=== PATIENT | female | born 1980 | race Caucasian/White ===

== ENCOUNTER 2020-01-23 13:31 | Emergency (ER) | payer MEDICAID, OTHER ==
--- NOTE | 2020-01-23 14:35 | ED Physician Documentation ---
PD HPI FOCAL NEURO - Stated complaint Stated Complaint: FACE NUMBNESS/HIGH BP - Chief complaint Chief Complaint: Neuro - History obtained from History obtained from: Patient, Family - Additional information Additional information: 39-year-old woman with history of Anxiety and hypertension. She was briefly treated for hypertension about a month ago with metoprolol but made her feel bad. Subsequently her blood pressures came down without specific intervention. Over the last 2 to 3 days she has had intermittent right facial numbness and very occasional right arm numbness. She started taking her blood pressure after she noted those symptoms and noted it to be quite high. She stopped her Wellbutrin thinking it might be a side effect, but she just stopped it today. She is also been taking numerous supplements. No associated headache or trouble breathing. Review of Systems Constitutional: denies: Fever, Chills Nose: reports: Reviewed and negative Throat: reports: Reviewed and negative Cardiac: reports: Chest pain / pressure PD PAST MEDICAL HISTORY - Allergies Allergies/Adverse Reactions: Allergies Allergy/AdvReac Type Severity Reaction Status Date / Time Penicillins Allergy Unknown Verified 01/23/20 13:39 PD ED PE NORMAL - Vitals Vital signs reviewed: Yes - General General: Alert and oriented X 3, No acute distress - HEENT HEENT: PERRL, EOMI - Neck Neck: Supple, no meningeal sign, No bony TTP - Cardiac Cardiac: RRR, No murmur - Respiratory Respiratory: No respiratory distress, Clear bilaterally - Abdomen Abdomen: Non tender - Back Back: No CVA TTP, No spinal TTP - Derm Derm: Normal color, Warm and dry - Extremities Extremities: Normal ROM s pain, No edema, No calf tenderness / cord - Neuro Neuro: Alert and oriented X 3, No motor deficit, Normal speech NIHSS - Time Time: 14:25 - Level of Consciousness Level of consciousness: (0) Alert, Keenly responsive LOC Questions: (0) Answers both Q's correct LOC Commands: (0) Performs both correctly - Gaze Best Gaze: (0) Normal - Visual Visual: (0) No loss - Facial Palsy Facial Palsy: (0) Normal, symmetrical movement - Motor Arms (both separate) Motor Arm (right): (0) No drift Motor Arm (left): (0) No drift - Motor Legs (both separate) Motor Leg (right): (0) No drift Motor Leg (left): (0) No drift - Limb Ataxia Limb Ataxia: (0) Absent - Sensory Sensory: (1) [id number]-[id number] loss (Very mildly decreased sensation to the right mid face, seems to spare the forehead, and also the right arm in places, more distal than proximal.) - Best Language Best Language: (0) No aphasia - Dysarthria Dysarthria: (0) Normal - Extinction and Inattention (formally neg Extinction and inattention: (0) No abnormality - Total Score/Results Total Score/Result: 1 Results - Vitals Vitals: Vital Signs - 24 hr 01/23/20 01/23/20 01/23/20 13:34 14:55 16:01 Temperature 36.8 C 37.1 C 36.7 C Heart Rate 92 78 91 Respiratory 20 12 20 Rate Blood Pressure 173/104 H 142/90 H 129/80 O2 Saturation 100 98 99 Oxygen O2 Source Room air - Labs Labs: Laboratory Tests 01/23/20 01/23/20 01/23/20 14:17 14:17 14:55 WBC 7.5 RBC 3.90 L Hgb 13.2 Hct 37.9 MCV 97.2 MCH 33.8 H MCHC 34.8 RDW 12.2 Plt Count 295 MPV 9.1 Neut # (Auto) 5.5 Lymph # (Auto) 1.3 L [place] # (Auto) 0.6 Eos # (Auto) 0.1 Baso # (Auto) 0.0 Absolute Nucleated RBC 0.00 Nucleated RBC % 0.0 VBG pH VBG pCO2 VBG pO2 VBG HCO3 VBG Total CO2 VBG O2 Saturation VBG Base Excess Sodium Potassium Chloride Carbon Dioxide Anion Gap BUN Creatinine Estimated GFR (MDRD) Glucose Calcium Urine Color YELLOW Urine Clarity CLEAR Urine pH 6.5 Ur Specific [place] 1.025 1.025 Urine Protein NEGATIVE Urine Glucose (UA) NEGATIVE Urine Ketones 15 H Urine Occult Blood NEGATIVE Urine Nitrite NEGATIVE Urine Bilirubin NEGATIVE Urine Urobilinogen 0.2 (NORMAL) Ur Leukocyte Esterase NEGATIVE Ur Microscopic Review NOT INDICATED Urine Culture Comments NOT INDICATED Urine HCG, Qual NEGATIVE 01/23/20 01/23/20 14:55 14:55 WBC RBC Hgb Hct MCV MCH MCHC RDW Plt Count MPV Neut # (Auto) Lymph # (Auto) [place] # (Auto) Eos # (Auto) Baso # (Auto) Absolute Nucleated RBC Nucleated RBC % VBG pH 7.398 VBG pCO2 43.6 VBG pO2 31.1 VBG HCO3 26.3 VBG Total CO2 27.6 VBG O2 Saturation 63.8 VBG Base Excess 1.1 Sodium 137 Potassium 4.1 Chloride 102 Carbon Dioxide 25 Anion Gap 10.0 BUN 9 Creatinine 0.7 Estimated GFR (MDRD) 94 Glucose 132 H Calcium 9.5 Urine Color Urine Clarity Urine pH Ur Specific [place] Urine Protein Urine Glucose (UA) Urine Ketones Urine Occult Blood Urine Nitrite Urine Bilirubin Urine Urobilinogen Ur Leukocyte Esterase Ur Microscopic Review Urine Culture Comments Urine HCG, Qual - Rads (name of study) MRI brain Radiology: EMP read contemporaneously (NAD) PD MEDICAL DECISION MAKING - ED course ED course: 39-year-old woman presents with episodic hypertension associated with some vague right-sided neurologic symptoms, mostly the face but also the right upper extremity. MRI of the brain was done and negative. Blood pressure came down to 120/60 without specific intervention. Departure - Departure Disposition: 01 Home, Self Care Clinical Impression: Stroke-like symptoms Condition: Good Record reviewed to determine appropriate education?: Yes Instructions: ED Stress React Comments: Radiologist agreed that the MRI of your head was normal, this rules out a stroke. You should return for new or worsening symptoms. If symptoms are persistent, talk with your doctor about a neurology referral. Your blood pressure was quite high but came down to normal without any medications here. There may be some anxiety component to this, talk with your doctor also about a referral for cognitive behavioral therapy since medications for anxiety do not seem to be working well for you.
[2020-01-23 14:48] LABS: BILIRUBIN,URINE NEGATIVE (NEGATIVE); GLUCOSE, URINE (UA) NEGATIVE (NEGATIVE); KETONES,URINE (UA) 15 mg/dL (NEGATIVE); LEUKOCYTE ESTERASE, URINE NEGATIVE (NEGATIVE); NITRITE,URINE NEGATIVE (NEGATIVE); OCCULT BLOOD,URINE NEGATIVE (NEGATIVE); PH,URINE 6.5 PH (5.0-7.5); PROTEIN,URINE NEGATIVE (NEGATIVE); UROBILINOGEN,URINE 0.2 (NORMAL) E.U./dL (NORMAL)
[2020-01-23 14:49] LABS: CLARITY,URINE CLEAR (CLEAR)
[2020-01-23 14:50] LABS: HCG UR QUAL NEGATIVE
[2020-01-23 15:08] LABS: BASOPHILS % (AUTO) 0.5 %; EOSINOPHILS # (AUTO) 0.1 10^3/uL (0.0-0.7); EOSINOPHILS % (AUTO) 0.8 %; HGB - HEMOGLOBIN 13.2 g/dL (12.0-16.0); LYMPHOCYTES # (AUTO) 1.3 10^3/uL (1.5-3.5); LYMPHOCYTES % (AUTO) 16.8 %; MEAN CORPUSCULAR HEMOGLOBIN 33.8 pg (27.0-31.0); MEAN CORPUSCULAR HGB CONC 34.8 g/dL (32.0-36.0); MEAN CORPUSCULAR VOLUME 97.2 fL (81.0-99.0); MEAN PLATELET VOLUME 9.1 fL (7.9-10.8); MONOCYTES # (AUTO) 0.6 10^3/uL (0.0-1.0); MONOCYTES % (AUTO) 7.7 %; NEUTROPHILS # (AUTO) 5.5 10^3/uL (1.5-6.6); NEUTROPHILS % (AUTO) 73.9 %; PLT - PLATELET COUNT 295 10^3/uL (130-450); RED CELL DISTRIBUTION WIDTH 12.2 % (12.0-15.0); VBG PCO2 43.6 mmHg (41-51); VBG PH 7.398 (7.31-7.41); VBG PO2 31.1 mmHg (25-47); WHITE BLOOD COUNT 7.5 x10^3/uL (4.8-10.8)
[2020-01-23 15:09] LABS: VBG BASE EXCESS 1.1 mmol/L (-2 - +2); VBG TOTAL CO2 27.6 mmol/L (24-29)
[2020-01-23 15:20] LABS: CALCIUM 9.5 mg/dL (8.5-10.3); CREATININE 0.7 mg/dL (0.4-1.0)
--- NOTE | 2020-01-23 18:23 | MRI Report ---
PROCEDURE: Brain W/O INDICATIONS: stroke like symptoms TECHNIQUE: Noncontrast axial T1 spin echo, axial T2 fast spin echo, sagittal and axial FLAIR, coronal T2 fast sp in echo, axial gradient echo, axial diffusion and ADC through the brain. COMPARISON: None. FINDINGS: Image quality: Excellent. CSF Spaces: Basal cisterns are patent. No extra-axial fluid collections. Ventricles are normal in size and shape. Brain: No intracranial masses or hemorrhage. Brand/white matter interface is normal. Brainstem appe ars normal. Diffusion-weighted images demonstrate no acute ischemic insult. No chronic ischemic ins ults. Normal intravascular flow voids are present. Skull and face: Calvarium has normal marrow signal. Orbits appear normal. Sinuses: Sinuses and mastoids are clear. IMPRESSION: Unremarkable brain MRI without contrast. No evidence of acute stroke, hemorrhage, or mass. Reviewed by: Agusto Arzate MD on 01/23/2020 6:22 PM PDT Approved by: Agusto Arzate MD on 01/23/2020 6:22 PM PDT Station ID: [id number]
[2020-01-23 18:59] VITALS: BP 125/83
== END 2020-01-23 18:59 | disposition home or self-care (01) ==
LOC: ED 13:31
DX: R20.0 Anesthesia of skin (principal); I10 Essential (primary) hypertension
CPT/HCPCS: 36415; 70551; 80048; 81001; 81003; 81025; 82803; 85025; 87086; 99284

== ENCOUNTER 2020-07-19 13:29 | Emergency (ER) | payer MEDICAID ==
[2020-07-19] MEDS ORDERED: IOPAMIDOL-300 100 ML VIAL ONE (13:59)
--- NOTE | 2020-07-19 14:08 | ED Physician Documentation ---
PD HPI FOCAL NEURO - Stated complaint Stated Complaint: NUMBNESS RT FACE - Chief complaint Chief Complaint: Neuro - History obtained from History obtained from: Patient - Additional information Additional information: I saw her in January for right-sided facial numbness. At that time she had an MRI of her brain that was normal. It was felt potentially due to Wellbutrin given the timing. She has had constant symptoms of this but more recently was couple as such short about on the basis of blacking out of the vision on the right. She states that it usually happens at around noon at work. It is associated with persistent mild right-sided numbness. Pursuant to that she had her right maxillary wisdom tooth removed about a week ago with a short course of Zithromax which has not changed her symptoms. She denies fevers or chills. Starting today she had right-sided sharp upper neck pain which concerned her. She has an appointment with ENT but has not seen them yet. Review of Systems Constitutional: denies: Fever, Chills Nose: reports: Rhinorrhea / runny nose, Congestion Throat: denies: Sore throat Respiratory: denies: Dyspnea, Cough GI: denies: Nausea, Vomiting PD PAST MEDICAL HISTORY - Past Medical History Cardiovascular: Hypertension Psych: Depression - Past Surgical History Past Surgical History: No - Present Medications Home Medications: Ambulatory Orders Medication Instructions Recorded Confirmed Amitriptyline [Elavil] 25 mg PO HS #30 tablet 07/19/20 - Allergies Allergies/Adverse Reactions: Allergies Allergy/AdvReac Type Severity Reaction Status Date / Time Penicillins Allergy Unknown Verified 07/19/20 13:33 - Social History Does the pt smoke?: No Smoking Status: Never smoker Does the pt have substance abuse?: No PD ED PE NORMAL - Vitals Vital signs reviewed: Yes - General General: Alert and oriented X 3, No acute distress - HEENT HEENT: PERRL, EOMI, Pharynx benign - Neck Neck: Supple, no meningeal sign, No bony TTP - Cardiac Cardiac: RRR, No murmur - Respiratory Respiratory: No respiratory distress, Clear bilaterally - Abdomen Abdomen: Normal bowel sounds, Soft, Non tender - Back Back: No CVA TTP, No spinal TTP - Derm Derm: Normal color, Warm and dry - Extremities Extremities: No edema, No calf tenderness / cord - Neuro Neuro: Alert and oriented X 3, No motor deficit, Normal speech, Other (Very mild numbness of the right side of the body, forehead, face, arm, leg.) Eye Opening: Spontaneous Motor: Obeys Commands Verbal: Oriented GCS Score: 15 NIHSS - Time Time: 13:55 - Level of Consciousness Level of consciousness: (0) Alert, Keenly responsive LOC Questions: (0) Answers both Q's correct LOC Commands: (0) Performs both correctly - Gaze Best Gaze: (0) Normal - Visual Visual: (0) No loss - Facial Palsy Facial Palsy: (0) Normal, symmetrical movement - Motor Arms (both separate) Motor Arm (right): (0) No drift Motor Arm (left): (0) No drift - Motor Legs (both separate) Motor Leg (right): (0) No drift Motor Leg (left): (0) No drift - Limb Ataxia Limb Ataxia: (0) Absent - Sensory Sensory: (1) Uuxj-qd-vpcsxhmr loss - Best Language Best Language: (0) No aphasia - Dysarthria Dysarthria: (0) Normal - Extinction and Inattention (formally neg Extinction and inattention: (0) No abnormality - Total Score/Results Total Score/Result: 1 Results - Vitals Vitals: Vital Signs - 24 hr 07/19/20 13:33 Temperature 36.5 C Heart Rate 104 H Respiratory 16 Rate Blood Pressure 170/100 H O2 Saturation 99 Oxygen O2 Source Room air - Labs Labs: Laboratory Tests 07/19/20 07/19/20 14:06 14:06 WBC 8.6 RBC 4.25 Hgb 14.1 Hct 39.9 MCV 93.9 MCH 33.2 H MCHC 35.3 RDW 11.7 L Plt Count 328 MPV 9.2 Neut # (Auto) 6.3 Lymph # (Auto) 1.6 [place] # (Auto) 0.5 Eos # (Auto) 0.1 Baso # (Auto) 0.1 Absolute Nucleated RBC 0.00 Nucleated RBC % 0.0 Sodium 137 Potassium 3.6 Chloride 104 Carbon Dioxide 23 Anion Gap 10.0 BUN 12 Creatinine 0.6 Estimated GFR (MDRD) 112 Glucose 107 H Calcium 9.7 - Rads (name of study) CTA Head and Neck Radiology: EMP read contemporaneously (Normal) PD MEDICAL DECISION MAKING - ED course ED course: She has persistent and progressive symptoms of numbness and more recently right- sided retro-orbital pressure and now acutely right-sided neck pain. Previous MRI for similar symptoms was normal, this should have good sensitivity ruling out MS, tumor, stroke. She was having active retro-orbital pressure and was placed on high flow oxygen which changed her symptoms, decreased the neck pain and move the pain over towards the ear. We discussed the possibility of cluster headaches. But we still need to rule out vascular issue given the new neck pain. Angiography of the head and neck were normal. She is seeing ENT but probably should see neurology as well and she is given the number to call. Given the potential for atypical headache syndrome, seems reasonable to trial some low- dose amitriptyline at night pending follow-up. Departure - Departure Disposition: 01 Home, Self Care Clinical Impression: Stroke-like symptoms Condition: Good Record reviewed to determine appropriate education?: Yes Instructions: ED Cephalgia Unspecified Prescriptions: Amitriptyline [Elavil] 25 mg PO HS #30 tablet Comments: CT angiography of the head and neck is normal, no evidence of disease of the vertebral arteries, masses. There are no sinus blockages or fluid. At this point, I think it is necessary to follow-up with the neurologist. The closest to you would be at [facility], 1 option would be: Shea Ribeiro MD Phone number [phone]. Return if worsening.
[2020-07-19 14:16] LABS: BASOPHILS # (AUTO) 0.1 10^3/uL (0.0-0.1); BASOPHILS % (AUTO) 0.6 %; EOSINOPHILS # (AUTO) 0.1 10^3/uL (0.0-0.7); EOSINOPHILS % (AUTO) 1.2 %; HCT - HEMATOCRIT 39.9 % (37.0-47.0); HGB - HEMOGLOBIN 14.1 g/dL (12.0-16.0); LYMPHOCYTES # (AUTO) 1.6 10^3/uL (1.5-3.5); LYMPHOCYTES % (AUTO) 18.4 %; MEAN CORPUSCULAR HEMOGLOBIN 33.2 pg (27.0-31.0); MEAN CORPUSCULAR HGB CONC 35.3 g/dL (32.0-36.0); MEAN CORPUSCULAR VOLUME 93.9 fL (81.0-99.0); MEAN PLATELET VOLUME 9.2 fL (7.9-10.8); MONOCYTES # (AUTO) 0.5 10^3/uL (0.0-1.0); MONOCYTES % (AUTO) 6.3 %; NEUTROPHILS # (AUTO) 6.3 10^3/uL (1.5-6.6); NEUTROPHILS % (AUTO) 73.3 %; PLT - PLATELET COUNT 328 10^3/uL (130-450); RED BLOOD COUNT 4.25 10^6/uL (4.20-5.40); RED CELL DISTRIBUTION WIDTH 11.7 % (12.0-15.0); WHITE BLOOD COUNT 8.6 x10^3/uL (4.8-10.8)
--- OUTSIDE RECORDS SUMMARY | 2020-07-19 14:16 | EXTERNAL MEDICAL SUMMARY RPT | Continuity of Care Document ---
:1980 Demographics Phone Unavailable Preferred Language Unknown Marital Status Unknown Yazidi Affiliation Unknown Race Unknown Ethnic Group Unknown Author Organization [facility] Address [address] [place] [address] Phone Social History date description facility [id number]
[2020-07-19 14:23] LABS: CALCIUM 9.7 mg/dL (8.5-10.3); CREATININE 0.6 mg/dL (0.4-1.0); POTASSIUM 3.6 mmol/L (3.5-5.0)
[2020-07-19] MEDS ORDERED: IOPAMIDOL-300 100 ML VIAL IVP ONE (14:55)
--- NOTE | 2020-07-19 15:07 | CT Report ---
PROCEDURE: ANGIO HEAD W/WO INDICATIONS: R headache/neck pain CONTRAST: IV CONTRAST: Isovue 300 ml: 80 PO CONTRAST: *NO PO CONTRAST TECHNIQUE: Precontrast 4.5 mm thick angled axial sections acquired from the foramen magnum to the vertex. Afte r the administration of intravenous contrast, 1 mm thick sections acquired through the [place] of [place] is. Postcontrast 4.5 mm thick sections then re-acquired from the foramen magnum to the vertex. 3-di mensional hhwvrbl-twytwjyue-nbvgazhezr (MIP) and/or volume rendering reformats were acquired of the c entral intracranial vasculature. For radiation dose reduction, the following was used: automated ex posure control, adjustment of mA and/or kV according to patient size. COMPARISON: MR brain 01/23/2020 FINDINGS: Image quality: Excellent. Anterior circulation: Intracranial internal carotid arteries are normal in size and flow. The flow within the paired anterior cerebral arteries is normal and symmetric. The flow within the middle cer ebral arteries is normal and symmetric. The anterior communicating artery is seen. No aneurysms are seen. Posterior circulation: Visualized portions of the vertebral arteries demonstrate normal caliber, and join to form a normal appearing basilar artery. Flow within the posterior cerebral arteries is norm al and symmetric. No aneurysms are seen. CSF spaces: Ventricles are normal in size and shape. Basal cisterns are patent. No extra-axial flu id collections. Brain: No midline shift. No intracranial bleeds or masses. Brand-white matter interface appears int act. Skull and face: Calvarium and facial bones appear intact, without suspicious lesions. Sinuses: Visualized sinuses and mastoids are clear. IMPRESSION: Normal appearing brain parenchyma, no evidence of intracranial aneurysm, embolus, or thrombosis. Reviewed by: Stewart Jackman MD on 07/19/2020 3:05 PM PDT Approved by: Stewart Jackman MD on 07/19/2020 3:05 PM PDT Station ID: [id number]
--- NOTE | 2020-07-19 15:11 | CT Report ---
PROCEDURE: ANGIO NECK W INDICATIONS: R headache/neck pain CONTRAST: IV CONTRAST: Isovue 300 ml: 80 PO CONTRAST: *NO PO CONTRAST TECHNIQUE: After the administration of intravenous contrast, 1.5 mm axial sections acquired from the aortic arch to the [place] of [place]. Coronal 3-D maximum intensity projection (MIP) and/or volume rendering ref ormats were then performed. For radiation dose reduction, the following was used: automated exposur e control, adjustment of mA and/or kV according to patient size. COMPARISON: Brain MRI 01/23/2020. Intracranial CT angiogram same day. FINDINGS: Image quality: Excellent. Carotid system: The great vessels demonstrate a conventional anatomy as they arise from the aortic a rch. The origins of the common carotid arteries appear patent. The common carotid arteries demonstr ate normal calibers and courses. The bifurcation regions appear normal bilaterally. The internal ca rotid arteries demonstrate normal caliber and course. Posterior circulation: The origins of the vertebral arteries appear patent. The more superior porti ons of the vertebral arteries demonstrate normal course and caliber. They join to form a normal appe aring basilar artery. Soft tissues: Visualized neck soft tissues demonstrate no suspicious abnormalities. The thyroid gla nd is normal in size. Bones: No suspicious bony lesions. Visualized cervical spine appears normally aligned. IMPRESSION: No sign of carotid stenosis, vertebral arterial stenosis, or dissection involving the brachiocephalic vasculature. Source of new onset neck pain is not identified. The estimate of stenosis included in the report of the imaging study was calculated using the NASCET method Reviewed by: Stewart Jackman MD on 07/19/2020 3:10 PM PDT Approved by: Stewart Jackman MD on 07/19/2020 3:10 PM PDT Station ID: [id number]
[2020-07-19 15:44] VITALS: BP 139/80
== END 2020-07-19 15:44 | disposition home or self-care (01) ==
LOC: ED 13:29
DX: R20.0 Anesthesia of skin (principal); M54.2 Cervicalgia; R51.9 Headache, unspecified; H53.9 Unspecified visual disturbance; I10 Essential (primary) hypertension
CPT/HCPCS: 36415; 70496; 70498; 80048; 85025; 99284; Q9967

== ENCOUNTER 2020-09-02 13:27 | Emergency (ER) | payer MEDICAID ==
--- OUTSIDE RECORDS SUMMARY | 2020-09-02 13:31 | EXTERNAL MEDICAL SUMMARY RPT | Continuity of Care Document ---
:1980 Demographics Phone Unavailable Preferred Language Unknown Marital Status Unknown Religion Affiliation Unknown Race Unknown Ethnic Group Unknown Author Organization [facility] Address [address] [place] [address] Phone Allergies Encounters Medications Problems Results
--- OUTSIDE RECORDS SUMMARY | 2020-09-02 13:51 | EXTERNAL MEDICAL SUMMARY RPT | Continuity of Care Document ---
:1980 Demographics Phone Unavailable Preferred Language Unknown Marital Status Unknown Spiritism Affiliation Unknown Race Unknown Ethnic Group Unknown Author Organization [facility] Address [address] [place] [address] Phone Allergies Encounters Medications Problems Results
--- NOTE | 2020-09-02 14:13 | XRAY Report ---
PROCEDURE: Chest 1 View X-Ray INDICATIONS: Chest pain TECHNIQUE: One view of the chest was acquired. COMPARISON: None FINDINGS: Surgical changes and devices: None. Lungs and pleura: No pleural effusions or pneumothorax. Lungs are clear. Mediastinum: Mediastinal contours appear normal. Heart size is normal. Bones and chest wall: No suspicious bony lesions. Overlying soft tissues appear unremarkable. IMPRESSION: No acute cardiopulmonary disease process. Reviewed by: Юлия Jackson MD, PhD on 09/02/2020 2:11 PM PDT Approved by: Юлия Jackson MD, PhD on 09/02/2020 2:11 PM PDT Station ID: [id number]
[2020-09-02 14:24] LABS: BASOPHILS % (AUTO) 0.4 %; EOSINOPHILS % (AUTO) 0.4 %; HGB - HEMOGLOBIN 14.2 g/dL (12.0-16.0); LYMPHOCYTES # (AUTO) 1.6 10^3/uL (1.5-3.5); LYMPHOCYTES % (AUTO) 16.9 %; MEAN CORPUSCULAR HEMOGLOBIN 34.4 pg (27.0-31.0); MEAN CORPUSCULAR HGB CONC 35.5 g/dL (32.0-36.0); MEAN CORPUSCULAR VOLUME 96.9 fL (81.0-99.0); MEAN PLATELET VOLUME 9.4 fL (7.9-10.8); MONOCYTES # (AUTO) 0.7 10^3/uL (0.0-1.0); MONOCYTES % (AUTO) 6.9 %; NEUTROPHILS # (AUTO) 7.3 10^3/uL (1.5-6.6); NEUTROPHILS % (AUTO) 75.2 %; PLT - PLATELET COUNT 307 10^3/uL (130-450); RED BLOOD COUNT 4.13 10^6/uL (4.20-5.40); RED CELL DISTRIBUTION WIDTH 12.2 % (12.0-15.0); WHITE BLOOD COUNT 9.7 x10^3/uL (4.8-10.8)
[2020-09-02 14:40] LABS: ALBUMIN 4.8 g/dL (3.2-5.5); ALBUMIN/GLOBULIN RATIO 1.5 (1.0-2.2); BILIRUBIN,TOTAL 0.5 mg/dL (0.2-1.0); CALCIUM 9.5 mg/dL (8.5-10.3); CREATININE 0.6 mg/dL (0.4-1.0); POTASSIUM 3.7 mmol/L (3.5-5.0)
--- NOTE | 2020-09-02 15:16 | ED Physician Documentation ---
History of Present Illness - Stated complaint Stated Complaint: CHEST PAIN - Chief complaint Chief Complaint: Cardiac - Additonal information Additional information: 39-year-old female presents the emergency department for evaluation of inter mittent chest pain and shortness of air over the last 2 weeks. She reports that all of a sudden she will begin to have palpitations feel short of air and have chest pressure that radiates to her back. No associated nausea or vomiting. She has been seen recently for neurological concerns and has pending appointments as well as MRI with neurology. Patient is a non-smoker, no history of hypertension. Takes no blood pressure medications but does endorse whitecoat syndrome. She has had no fainting or syncope. No vomiting diarrhea or abdominal pain. No history of recent surgery or immobilization. No hormone use no unilateral leg swelling or history of DVT or cancer. Review of Systems Constitutional: denies: Fever, Chills Eyes: reports: Reviewed and negative Ears: reports: Reviewed and negative Nose: reports: Reviewed and negative Throat: reports: Reviewed and negative Cardiac: reports: Chest pain / pressure, Palpitations. denies: Pedal edema, Calf pain Respiratory: denies: Dyspnea, Cough GI: denies: Abdominal Pain, Abdominal Swelling, Nausea : reports: Reviewed and negative Skin: reports: Reviewed and negative Musculoskeletal: reports: Reviewed and negative PD PAST MEDICAL HISTORY - Past Medical History Past Medical History: No Cardiovascular: Hypertension Respiratory: None Neuro: None Endocrine/Autoimmune: None GI: None SOLE BUFFER: Other : None HEENT: None Psych: Depression Musculoskeletal: None Derm: None Other Past Medical History: abnormal symptoms during normal periods. Period due in one week. - Past Surgical History Past Surgical History: No - Present Medications Home Medications: Ambulatory Orders Medication Instructions Recorded Confirmed Amitriptyline [Elavil] 25 mg PO HS #30 tablet 07/19/20 Ondansetron Odt [Zofran] 4 mg TL Q6H PRN #10 tablet 09/02/20 - Allergies Allergies/Adverse Reactions: Allergies Allergy/AdvReac Type Severity Reaction Status Date / Time Penicillins Allergy Unknown Verified 09/02/20 13:36 - Social History Does the pt smoke?: No Smoking Status: Never smoker Does the pt drink ETOH?: Yes Does the pt have substance abuse?: No - Immunizations Immunizations are current?: Yes - POLST Patient has POLST: No PD ED PE EXPANDED - General General: Alert, No acute distress, Other (obese) - Neck Neck: Supple w/out meningeal sx. No: Adenopathy - Cardiac Cardiac: Regular Rate, Radial strong equal, Pedal strong equal, Cap refill < 2 sec - Respiratory Respiratory: Clear to ausultation renetta. No: Distress, Labored - Abdomen Abdomen: Normal Bowel sounds. No: Tender to palpation - Extremities Extremities: Normal. No: Deformity, Tenderness - Neuro Neuro: Alert and Oriented X 3, CNII-XII intact - GCS Eye Opening: Spontaneous Motor: Obeys Commands Verbal: Oriented Total: 15 Results - Vitals Vitals: Vital Signs - 24 hr 09/02/20 09/02/20 09/02/20 13:37 15:49 15:52 Temperature 36.8 C Heart Rate 85 67 Respiratory 18 11 L Rate Blood Pressure 132/90 H 141/91 H O2 Saturation 99 99 Oxygen O2 Source Room air - EKG (time done) 1339 Rate: Rate (enter#) (85) Rhythm: NSR [place]: Normal Intervals: Normal [place] QRS: Normal Ischemia: Normal ST segments Computer interpretation: Agree with computer - Labs Labs: Laboratory Tests 09/02/20 09/02/20 09/02/20 14:17 14:17 14:17 WBC 9.7 RBC 4.13 L Hgb 14.2 Hct 40.0 MCV 96.9 MCH 34.4 H MCHC 35.5 RDW 12.2 Plt Count 307 MPV 9.4 Neut # (Auto) 7.3 H Lymph # (Auto) 1.6 [place] # (Auto) 0.7 Eos # (Auto) 0.0 Baso # (Auto) 0.0 Absolute Nucleated RBC 0.00 Nucleated RBC % 0.0 D-Dimer Sodium 135 Potassium 3.7 Chloride 102 Carbon Dioxide 24 Anion Gap 9.0 BUN 16 Creatinine 0.6 Estimated GFR (MDRD) 112 Glucose 95 Calcium 9.5 Total Bilirubin 0.5 AST 18 ALT 16 Alkaline Phosphatase 41 L Troponin I High Sens 3.1 Total Protein 8.0 Albumin 4.8 Globulin 3.2 Albumin/Globulin Ratio 1.5 Lipase 34 09/02/20 14:59 WBC RBC Hgb Hct MCV MCH MCHC RDW Plt Count MPV Neut # (Auto) Lymph # (Auto) [place] # (Auto) Eos # (Auto) Baso # (Auto) Absolute Nucleated RBC Nucleated RBC % D-Dimer 207.9 Sodium Potassium Chloride Carbon Dioxide Anion Gap BUN Creatinine Estimated GFR (MDRD) Glucose Calcium Total Bilirubin AST ALT Alkaline Phosphatase Troponin I High Sens Total Protein Albumin Globulin Albumin/Globulin Ratio Lipase - Rads (name of study) CXR Radiology: Final report received (No acute cardiopulmonary process) PD MEDICAL DECISION MAKING - ED course Complexity details: reviewed results, re-evaluated patient, d/w patient ED course: 39-year-old female presents the emergency department for evaluation of chest pain, shortness of air and nausea. She is undergoing neurologic evaluation for recent focal neuro deficit. She does endorse some anxiety. She often feels that her heart is racing and she gets nauseated even at rest and will develop sudden shortness of air. By PERC criteria she is low risk for PE but given the intermittent symptoms for nearly 2 weeks a D-dimer was completed and is reassuringly negative therefore will defer CT pulmonary angio. Screening EKG is sinus rhythm nonischemic. High-sensitivity troponin negative. Chest x-ray shows no acute focal abnormalities. Other screening labs including CBC and electrolytes without worrisome findings. The etiology of her chest pain and pressure and shortness of air is not fully understood at this time. She does have a primary care appointment scheduled for next week in which I have encouraged her to request stress test/echocardiogram as well as consideration of a Holter monitor. She is to continue to follow-up with neurology as well as the scheduled MRIs. Emergent return precautions were discussed. Departure - Departure Disposition: 01 Home, Self Care Clinical Impression: Shortness of breath, Nausea Chest pain Qualifiers: Chest pain type: unspecified Qualified Code(s): R07.9 - Chest pain, unspecified Condition: Stable Record reviewed to determine appropriate education?: Yes Instructions: ED Dyspnea Shortness of Breath Prescriptions: Ondansetron Odt [Zofran] 4 mg TL Q6H PRN #10 tablet PRN Reason: Nausea / Vomiting Comments: Daisy meyers are seen today in the emergency department for chest discomfort, shortness of air as well as nausea. The cause of your symptoms is not clear today. Your screening labs including a D-dimer, troponin, blood count and electrolytes were all essentially normal. Your EKG is normal for age and your chest x-ray did not show any worrisome findings. I think it would be important for you to discuss this ED visit with your primary care provider. You may benefit from outpatient referral for an echocardiogram and stress test as well as a possible Holter monitor. Return to the emergency department if you develop fevers, suddenly severe abdominal pain uncontrolled vomiting weakness in your arms or legs or feel that your symptoms are not well controlled.
[2020-09-02 16:06] VITALS: BP 146/90
== END 2020-09-02 16:10 | disposition home or self-care (01) ==
LOC: ED 13:27
DX: R07.9 Chest pain, unspecified (principal); R06.02 Shortness of breath; R11.0 Nausea
CPT/HCPCS: 36415; 80053; 83690; 84484; 85025; 85379; 93005; 99284

== ENCOUNTER 2021-08-14 08:23 | Emergency (ER) | payer OTHER, MEDICAID ==
[2021-08-14 08:46] LABS: BASOPHILS % (AUTO) 0.1 %; EOSINOPHILS # (AUTO) 0.1 10^3/uL (0.0-0.7); EOSINOPHILS % (AUTO) 0.7 %; HCT - HEMATOCRIT 44.7 % (37.0-47.0); HGB - HEMOGLOBIN 15.6 g/dL (12.0-16.0); LYMPHOCYTES # (AUTO) 1.4 10^3/uL (1.5-3.5); MEAN CORPUSCULAR HEMOGLOBIN 33.8 pg (27.0-31.0); MEAN CORPUSCULAR HGB CONC 34.9 g/dL (32.0-36.0); MEAN CORPUSCULAR VOLUME 96.8 fL (81.0-99.0); MONOCYTES # (AUTO) 0.8 10^3/uL (0.0-1.0); MONOCYTES % (AUTO) 5.7 %; NEUTROPHILS # (AUTO) 11.4 10^3/uL (1.5-6.6); NEUTROPHILS % (AUTO) 83.3 %; PLT - PLATELET COUNT 352 10^3/uL (130-450); RED BLOOD COUNT 4.62 10^6/uL (4.20-5.40); WHITE BLOOD COUNT 13.6 x10^3/uL (4.8-10.8)
[2021-08-14 09:00] LABS: ALBUMIN 4.3 g/dL (3.2-5.5); ALBUMIN/GLOBULIN RATIO 1.3 (1.0-2.2); BILIRUBIN,TOTAL 0.6 mg/dL (0.2-1.0); CALCIUM 9.1 mg/dL (8.5-10.3); CREATININE 0.7 mg/dL (0.4-1.0); POTASSIUM 3.6 mmol/L (3.5-5.0); TOTAL PROTEIN 7.7 g/dL (6.7-8.2)
[2021-08-14] MEDS ORDERED: SODIUM CHLORIDE 0.9% 1,000 ML IV STA (09:22)
[2021-08-14] MEDS ORDERED: ONDANSETRON 4 MG/2 ML VIAL IVP STA (09:22)
--- NOTE | 2021-08-14 09:25 | ED Physician Documentation ---
PD HPI NVD - Stated complaint Stated Complaint: ABD PAIN/DIARRHEA - Chief complaint Chief Complaint: Abd Pain - History obtained from History obtained from: Patient, Family - History of Present Illness Timing - onset: How many days ago (2) Timing - duration: Days (2) Timing - details: Abrupt onset, Still present, Waxing and waning Associated symptoms: Abdominal pain, Other (vomiting and diarrhea) Contributing factors: Bad food (had noodles with soup that have caused some trouble previously not this bad.) Improved by: Vomiting, BM Similar symptoms before: Diagnosis (food poisoning) Recently seen: Not recently seen - Additonal information Additional information: Previously well 40-year-old female has developed acute nausea vomiting and diarrhea 2 nights ago after eating some noodles with her soup. The rest of the family had similar meal and no one else is sick. The patient herself states that the needle she is eating are gluten-free and she did have a similar reaction previously when she ate less of this and she thought this was over and she tried this again with more dramatic results.She was not ill prior to this. Review of Systems Constitutional: denies: Fever Eyes: denies: Decreased vision Ears: denies: Ear pain Nose: denies: Rhinorrhea / runny nose, Congestion Throat: denies: Sore throat Cardiac: denies: Chest pain / pressure, Palpitations Respiratory: denies: Dyspnea, Cough GI: reports: Abdominal Pain, Nausea, Vomiting, Diarrhea : denies: Dysuria, Frequency PD PAST MEDICAL HISTORY - Past Medical History Cardiovascular: Hypertension Respiratory: None Neuro: None Endocrine/Autoimmune: None GI: None [employer]: Other : None HEENT: None Psych: Depression Musculoskeletal: None Derm: None - Past Surgical History Past Surgical History: No - Present Medications Home Medications: Ambulatory Orders Medication Instructions Recorded Confirmed Amitriptyline [Elavil] 25 mg PO HS #30 tablet 07/19/20 08/14/21 Ondansetron Odt [Zofran] 4 mg TL Q6H PRN #10 tablet 09/02/20 08/14/21 Ondansetron Odt [Zofran] 4 mg TL Q6H PRN #10 tablet 08/14/21 - Allergies Allergies/Adverse Reactions: Allergies Allergy/AdvReac Type Severity Reaction Status Date / Time Penicillins Allergy Unknown Verified 05/08/22 08:30 - Social History Does the pt smoke?: No Smoking Status: Never smoker Does the pt drink ETOH?: Yes Does the pt have substance abuse?: No - Immunizations Immunizations are current?: Yes - POLST Patient has POLST: No PD ED PE NORMAL - Vitals Vital signs reviewed: Yes (hypertensive) - General General: Alert and oriented X 3, No acute distress, Well developed/nourished - HEENT HEENT: Atraumatic, PERRL, EOMI - Neck Neck: Supple, no meningeal sign - Cardiac Cardiac: RRR, No murmur - Respiratory Respiratory: No respiratory distress, Clear bilaterally - Abdomen Abdomen: Normal bowel sounds, Soft, Non distended, No organomegaly, Other (mild general tenderness without focal tenderness no peritoneal signs. ) - Back Back: No CVA TTP, No spinal TTP - Derm Derm: Normal color, Warm and dry, No rash - Extremities Extremities: No deformity, No edema - Neuro Neuro: Alert and oriented X 3, activities attendant 2-12 intact, No motor deficit, No sensory deficit, Normal speech Eye Opening: Spontaneous Motor: Obeys Commands Verbal: Oriented GCS Score: 15 - Psych Psych: Normal mood, Normal affect Results - Vitals Vitals: Vital Signs - 24 hr 08/14/21 08/14/21 08/14/21 08:30 08:44 11:58 Temperature 36.6 C 36.9 C Heart Rate 77 61 76 Respiratory 18 14 16 Rate Blood Pressure 133/93 H 139/94 H 126/85 H O2 Saturation 98 98 97 Oxygen O2 Source Room air - Labs Labs: Laboratory Tests 08/14/21 08/14/21 08/14/21 08:41 08:41 09:50 WBC 13.6 H RBC 4.62 Hgb 15.6 Hct 44.7 MCV 96.8 MCH 33.8 H MCHC 34.9 RDW 12.0 Plt Count 352 MPV 9.0 Neut # (Auto) 11.4 H Lymph # (Auto) 1.4 L [place] # (Auto) 0.8 Eos # (Auto) 0.1 Baso # (Auto) 0.0 Absolute Nucleated RBC 0.00 Nucleated RBC % 0.0 Sodium 140 Potassium 3.6 Chloride 109 Carbon Dioxide 22 Anion Gap 9.0 BUN 14 Creatinine 0.7 Estimated GFR (MDRD) 94 Glucose 120 H Calcium 9.1 Total Bilirubin 0.6 AST 18 ALT 12 Alkaline Phosphatase 41 L Total Protein 7.7 Albumin 4.3 Globulin 3.4 Albumin/Globulin Ratio 1.3 Lipase 38 Urine Color YELLOW Urine Clarity CLEAR Urine pH 5.5 Ur Specific [place] >=1.030 H Urine Protein NEGATIVE Urine Glucose (UA) NEGATIVE Urine Ketones TRACE Urine Occult Blood TRACE-INTA Urine Nitrite NEGATIVE Urine Bilirubin NEGATIVE Urine Urobilinogen 0.2 (NORMAL) Ur Leukocyte Esterase NEGATIVE Ur Microscopic Review NOT INDICATED Urine Culture Comments NOT INDICATED Urine HCG, Qual NEGATIVE PD MEDICAL DECISION MAKING - ED course Complexity details: reviewed results, re-evaluated patient, considered differential, d/w patient, d/w family ED course: 40-year-old female with acute gastroenteritis appears dehydrated on physical examination and she is administered intravenous saline and Zofran with improvement in her symptoms. Departure - Departure Disposition: 01 Home, Self Care Clinical Impression: Gastroenteritis Instructions: ED Gastroenteritis Vs Food Poison Follow-Up: KAREN MADSEN, [place] [Primary Care Provider] - Prescriptions: Ondansetron Odt [Zofran] 4 mg TL Q6H PRN #10 tablet PRN Reason: Nausea / Vomiting Comments: Daisy, today it looks like you have an acute gastroenteritis which may simply be the irritation from the food you ate yesterday or an infectious etiology. The usual course of gastroenteritis is to resolve within 2 to 5 days and I have provided some additional medication for nausea for you and it has been E scribed to [facility] in [place]. Discharge Date/Time: 08/14/21 12:01
[2021-08-14 10:00] LABS: BILIRUBIN,URINE NEGATIVE (NEGATIVE); GLUCOSE, URINE (UA) NEGATIVE (NEGATIVE); KETONES,URINE (UA) TRACE mg/dL (NEGATIVE); LEUKOCYTE ESTERASE, URINE NEGATIVE (NEGATIVE); NITRITE,URINE NEGATIVE (NEGATIVE); OCCULT BLOOD,URINE TRACE-INTA (NEGATIVE); PH,URINE 5.5 PH (5.0-7.5); PROTEIN,URINE NEGATIVE (NEGATIVE); UROBILINOGEN,URINE 0.2 (NORMAL) E.U./dL (NORMAL)
[2021-08-14 10:04] LABS: CLARITY,URINE CLEAR (CLEAR); HCG UR QUAL NEGATIVE
[2021-08-14] MEDS ORDERED: KETOROLAC 30 MG/ML VIAL IVP STA (10:26)
[2021-08-14 12:01] VITALS: BP 126/85
== END 2021-08-14 12:01 | disposition home or self-care (01) ==
LOC: ED 08:23
DX: K52.9 Noninfective gastroenteritis and colitis, unspecified (principal)
CPT/HCPCS: 36415; 80053; 81001; 81003; 81025; 83690; 85025; 87086; 96361; 96374; 96375; 99284